=== PATIENT | male | born 1940 | race African-American/Black ===

== ENCOUNTER 2018-06-15 13:51 | Emergency (ER) | payer MEDICARE ==
[2018-06-15] MEDS ORDERED: ASPIRIN 81 MG TABLET, CHEWABLE PO ONE (14:26)
--- NOTE | 2018-06-15 14:29 | ER Document Report ---
ED Medical Screen (RME) - General Chief Complaint: Dizziness Stated Complaint: DIZZY Time Seen by Provider: 06/15/18 14:23 Notes: 78-year-old male presents emergency department with complaints of lightheadedness that started today. Patient states that he has had similar symptoms in the past. Hx of syncopal episodes. He denies any syncope today. He denies any chest pain, shortness of breath, abdominal pain, nausea, vomiting. Patient states that if he puts his head down it worsens the dizziness. No alleviating factors. I have greeted and performed a rapid initial assessment of this patient. A comprehensive ED assessment and evaluation of the patient, analysis of test results and completion of the medical decision making process will be conducted by additional ED providers. PHYSICAL EXAMINATION: GENERAL: Well-appearing, well-nourished and in no acute distress. HEAD: Atraumatic, normocephalic. EYES: Pupils equal round extraocular movements intact, conjunctiva are normal. ENT: Nares patent NECK: Normal range of motion LUNGS: No respiratory distress Musculoskeletal: Normal range of motion NEUROLOGICAL: Normal speech, normal gait. PSYCH: Normal mood, normal affect. SKIN: Warm, Dry, normal turgor, no rashes or lesions noted. TRAVEL OUTSIDE OF THE [place] IN LAST 30 DAYS: No - Related Data Allergies/Adverse Reactions: No Known Allergies Allergy (Verified 06/15/18 13:52) Past Medical History - Past Medical History Cardiac Medical History: Reports: Hx Hypercholesterolemia, Hx Hypertension Endocrine Medical History: Reports: Hx Diabetes Mellitus Type 2 - "pre-diabetic " Past Surgical History: Reports: Hx Genitourinary Surgery - prostate - Immunizations Hx Diphtheria, Pertussis, Tetanus Vaccination: No Physical Exam - Vital signs Vitals: Temp Pulse Resp BP Pulse Ox 98.4 F 69 16 150/81 H 99 06/15/18 13:55 06/15/18 13:55 06/15/18 13:55 06/15/18 13:55 06/15/18 13:55 Course - Vital Signs Vital signs: Temp Pulse Resp BP Pulse Ox 98.4 F 69 16 150/81 H 99 06/15/18 13:55 06/15/18 13:55 06/15/18 13:55 06/15/18 13:55 06/15/18 13:55
[2018-06-15 15:22] LABS: ABSOLUTE LYMPHOCYTES (AUTO) 1.3 10^3/uL (0.5-4.7); ABSOLUTE MONOCYTES (AUTO) 0.3 10^3/uL (0.1-1.4); ABSOLUTE NEUT (AUTO) 3.3 10^3/uL (1.7-8.2); BASOPHILS % (AUTO) 0.4 % (0-2); EOSINOPHILS % (AUTO) 0.9 % (0-6); HEMATOCRIT 37.5 % (37.9-51.0); HEMOGLOBIN 13.2 g/dL (13.5-17.0); LYMPHOCYTES % (AUTO) 25.2 % (13-45); MEAN CORPUSCULAR HEMOGLOBIN 29.3 pg (27.0-33.4); MEAN CORPUSCULAR HGB CONC 35.3 g/dL (32.0-36.0); MEAN CORPUSCULAR VOLUME 83 fl (80-97); MONOCYTES % (AUTO) 6.7 % (3-13); PLATELET COUNT 242 10^3/uL (150-450); RED BLOOD COUNT 4.52 10^6/uL (4.35-5.55); RED CELL DISTRIBUTION WIDTH 14.5 % (11.5-14.0); SEGMENTED NEUTROPHILS % (AUTO) 66.8 % (42-78); TOTAL CELLS COUNTED % (AUTO) 100 %
--- NOTE | 2018-06-15 15:26 | ER Document Report ---
ED General - General Chief Complaint: Dizziness Stated Complaint: DIZZY Time Seen by Provider: 06/15/18 14:23 TRAVEL OUTSIDE OF THE [place] IN LAST 30 DAYS: No - HPI Notes: This is a very pleasant 78-year-old -[place] male with past medical history of hypertension coronary artery disease who has a pacemaker that was checked last week. He presents today for dizziness that started this morning. He denied any loss of consciousness or falls. He said it is worse when he is standing and he leans his head forward and also when he is laying on his back looking up. It helps when he lays on his side or turns his head to the side. - Related Data Allergies/Adverse Reactions: No Known Allergies Allergy (Verified 06/15/18 13:52) Past Medical History - General Information source: Patient, Relative - Social History Smoking Status: Unknown if Ever Smoked Lives with: Spouse/Significant other Family History: Hypertension Patient has suicidal ideation: No Patient has homicidal ideation: No - Past Medical History Cardiac Medical History: Reports: Hx Hypercholesterolemia, Hx Hypertension Endocrine Medical History: Reports: Hx Diabetes Mellitus Type 2 - "pre-diabetic " Past Surgical History: Reports: Hx Genitourinary Surgery - prostate - Immunizations Hx Diphtheria, Pertussis, Tetanus Vaccination: No Review of Systems - Review of Systems Constitutional: denies: Chills, Diaphoresis, Fever, Malaise EENT: denies: Blurred vision, Double vision Cardiovascular: denies: Chest pain, Palpitations, Orthopnea, Dyspnea Respiratory: denies: Short of breath Gastrointestinal: denies: Nausea, Vomiting Genitourinary: denies: Dysuria, Incontinence, Retention Musculoskeletal: No symptoms reported Skin: No symptoms reported Neurological/Psychological: Hallucinations. denies: Confusion, Dementia Physical Exam - Vital signs Vitals: Temp Pulse Resp BP Pulse Ox 98.4 F 69 16 150/81 H 99 06/15/18 13:55 06/15/18 13:55 06/15/18 13:55 06/15/18 13:55 06/15/18 13:55 - General General appearance: Appears well, Alert In distress: None - HEENT Head: Normocephalic Eyes: Normal Conjunctiva: Normal Cornea: Normal Extraocular movements intact: Yes Eyelashes: Normal Pupils: PERRL Ears: Normal Neck: Normal - Respiratory Respiratory status: No respiratory distress Chest status: Nontender Breath sounds: Normal Chest palpation: Normal - Cardiovascular Rhythm: Regular Heart sounds: Normal auscultation, S1 appreciated, S2 appreciated Murmur: No Notes: Patient has a pacemaker placed 6 years ago. Was checked last week in [place] - Abdominal Inspection: Normal Distension: No distension Bowel sounds: Normal Tenderness: Nontender - Extremities General upper extremity: Normal strength General lower extremity: Normal strength - Neurological Neuro grossly intact: Yes Cognition: Normal Orientation: AAOx4 Speech: Normal Cerebellar coordination: Normal Motor strength normal: LUE, RUE, LLE, RLE Additional motor exam normals: Equal manager human resources - 5/5, Dorsiflexion - 5/5, Plantar flexion - 5/5. No: Pronator drift, Weakness Course - Re-evaluation Re-evalutation: 06/15/18 17:[address] Figueredo. Pt in no acute distress and c/o dizziness upon standing up. Lab work revealed no abnormalities. Pt with isolated dizziness, most likely represents BPPV. I do not think this is a cardiac etiology: pt in a paced sinus rhythm with no evidence of ischemia on EKG. FAST exam was negative. Pt is non focal. - Vital Signs Vital signs: Temp Pulse Resp BP Pulse Ox 98.4 F 69 15 149/87 H 100 06/15/18 13:55 06/15/18 13:55 06/15/18 16:01 06/15/18 16:00 06/15/18 14:26 - Laboratory Result Diagrams: 06/15/18 14:54 06/15/18 14:54 Laboratory results interpreted by me: 06/15/18 06/15/18 14:54 14:54 Hgb 13.2 L Hct 37.5 L RDW 14.5 H Sodium 145.7 H BUN 24 H ALT 17 L Total Protein 8.5 H Discharge - Discharge Clinical Impression: Dizziness Condition: Good Disposition: HOME, SELF-CARE Instructions: Dizziness ([facility]), Meclizine ([facility]) Additional Instructions: You came to the hospital today for dizziness. Because of the way your dizziness presents, it is most likely from a small stone called an otolith in your semicircular canal of your ear. That could affect your balance as it alters the way the fluid in your ear keep you oriented. We prescribed you a drug called Antivert which could help you with your symptoms, although it could take a couple of days of taking it before you feel any relief. Also, included in the packet is instructions to perform what is called the Marjorie maneuver you can try this at home with the help of your . Have any new or worsening symptoms like slurred speech or facial droop or difficulty walking immediately return to the ER. Prescriptions: Meclizine HCl [Antivert 12.5 mg Tablet] 12.5 mg PO BID PRN #14 tab PRN Reason: Dizziness
[2018-06-15 15:38] LABS: ALANINE AMINOTRANSFERASE 17 U/L (21-72); ALBUMIN 4.6 g/dL (3.5-5.0); ALKALINE PHOSPHATASE 50 U/L (38-126); ANION GAP 12 (5-19); ASPARTATE AMINO TRANSFERASE 20 U/L (17-59); BILIRUBIN,DIRECT 0.1 mg/dL (0.0-0.4); BILIRUBIN,TOTAL 0.4 mg/dL (0.2-1.3); BLOOD UREA NITROGEN 24 mg/dL (7-20); CALCIUM 9.6 mg/dL (8.4-10.2); CARBON DIOXIDE 30 mmol/L (22-30); CHLORIDE 104 mmol/L (98-107); GLUCOSE 86 mg/dL (75-110); POTASSIUM 4.9 mmol/L (3.6-5.0); SODIUM 145.7 mmol/L (137-145); TOTAL PROTEIN 8.5 g/dL (6.3-8.2)
[2018-06-15 16:46] VITALS: BP 149/87
[2018-06-15] MEDS ORDERED: MECLIZINE HCL 12.5 MG TABLET PO ONE (17:08)
--- NOTE | 2018-06-15 18:35 | EKG REPORT ---
SEVERITY:- ABNORMAL ECG - ATRIAL-VENTRICULAR DUAL-PACED RHYTHM INTERMITTENT ACCESSORY PATHWAY CONDUCTION. : Confirmed by: Janusz Desai MD 15-Jun-2018 18:34:15
== END 2018-06-15 17:45 | disposition home or self-care (01) ==
LOC: ER 13:51
DX: R42 Dizziness and giddiness (principal); I10 Essential (primary) hypertension; I25.10 Atherosclerotic heart disease of native coronary artery without angina pectoris; Z95.0 Presence of cardiac pacemaker; E11.9 Type 2 diabetes mellitus without complications
CPT/HCPCS: 93005; 99284; 36415; 85025; 80053; 84484; 93010; A9270 ×2; J3490